=== PATIENT | male | born 1985 | race Caucasian/White ===

== ENCOUNTER 2018-09-24 21:07 | Emergency (ER) | payer OTHER ==
[~2018-09-24] VITALS: Ht 167.6 cm; Wt 99.8 kg
[~2018-09-24 21:07] MED LIST: Ciloxan5 ML RIGHTEYE; HYDR1TAB94 PO; PENVK500 PO; RXHYDACE PO; TYLENOL PRN; Ultram50 MG PO
[2018-09-24] MEDS ORDERED: Norco 7.5-3251 EACH PO (22:25)
[2018-09-24] MEDS ORDERED: Cleocin HCl300 MG PO (22:25)
== END 2018-09-24 22:56 | disposition home or self-care (01) ==
LOC: ER 21:07
DX: K04.7 Periapical abscess without sinus (principal); Z79.899 Other long term (current) drug therapy
CPT/HCPCS: 99282